=== PATIENT | male | born 1985 | race Caucasian/White ===

== ENCOUNTER 2016-06-08 18:30 | Emergency (ER) | payer BC ==
[2016-06-08] MEDS ORDERED: IBUPROFEN 800 MG TAB As Ordered ONE (22:06)
[2016-06-08] MEDS ORDERED: ONDANSETRON 4 MG ORAL DISINTEGRATING TAB (S0181) As Ordered ONE (22:06)
--- NOTE | 2016-06-08 22:13 | EDDOCDS ---
Nurse's Notes [facility] Name: Anton Lorenzo Age: 30 yrs Sex: Male : 1985 Arrival Date: 06/08/2016 Time: 18:30 Bed TR7 Private MD: NO PRIMARY PHYSICIAN, . Diagnosis: Generalized abdominal pain;Vomiting;Malaise and fatigue Presentation: 06/08 19:03 Presenting complaint: Patient states: he has had a stomach ache since last night cz vomiting last episode 0400. Risk factors: the patient reports not having a history of previous torsion. Adult Sepsis Screening: The patient does not have new or worsening altered mentation. Patient's respiratory rate is less than 22. Systolic blood pressure is greater than 100. Patient has a qSOFA score of 0- Negative Sepsis Screen. Suicide/Homicide risk assessment- the patient denies having any suicidal and/or homicidal ideations and does not present with any other emotional, behavioral or mental health complaints. Status: Patient is not a community services coordinator or dependent. Transition of care: patient was not received from another setting of care. 19:03 Acuity: TRISTEN Level 4 cz 19:03 Method Of Arrival: Walkin/Carried/Asstd cz Triage Assessment: 19:05 General: Appears in no apparent distress. Pain: Location: abdomen Pain currently is 5 cz out of 10 on a pain scale. Pt Declines HIV testing. Historical: - Allergies: No known drug Allergies; - Home Meds: 1. none - PMHx: none; - PSHx: Tonsillectomy; - Social history: Smoking status: Patient states was never smoker of tobacco. No barriers to communication noted, The patient speaks fluent Latvian, Speaks appropriately for age. - Family history: Not pertinent. - : The pt / caregiver states he / she is not on anticoagulants. Home medication list is obtained from the patient. - Exposure Risk Screening:: None identified. Screenin:42 Screening information is obtained from the patient. Fall risk: No risks identified. lf1 Assistance ADL's: requires no assistance with activities of daily living. Abuse/DV Screen: The patient / caregiver reports he/she is: not in a situation that causes fear, pain or injury. Nutritional screening: No deficits noted. Advance Directives: Currently, there is no health care proxy. There is no active DNR order. There is no living will. home support is adequate. Assessment: 21:42 Adult Sepsis Screening: The patient does not have new or worsening altered mentation. lf1 Patient's respiratory rate is less than 22. Systolic blood pressure is greater than 100. Patient has a qSOFA score of 0- Negative Sepsis Screen. General: Appears uncomfortable, Behavior is cooperative. Pain: Location: abdomen Pain currently is 4 out of 10 on a pain scale. Quality of pain is described as crampy. Neurological: Level of Consciousness is awake, alert, Oriented to person, place, time. EENT: No deficits noted. Cardiovascular: Chest pain is denied. Respiratory: Respiratory effort is even, unlabored. GI: Reports nausea, vomiting, Denies diarrhea. : No deficits noted. Derm: No deficits noted. Vital Signs: 18:32 BP 153 / 89; Pulse 117; Resp 18 S; Temp 98.2(O); Pulse Ox 100% on R/A; Weight 68.04 kg gr2 (R); Height 5 ft. 5 in. (165.10 cm) (R); Pain 8/10; 21:42 BP 146 / 89; Pulse 102; Resp 16; Temp 98.6(O); Pulse Ox 100% on R/A; Pain 4/10; lf1 18:32 Body Mass Index 24.96 (68.04 kg, 165.10 cm) gr2 Vitals: 18:32 Log In Time: June 08, 2016 at 18:32. gr2 ED Course: 18:31 Patient visited by Rowena Soria. gr2 18:31 Patient moved to Waiting gr2 18:32 NO PRIMARY PHYSICIAN, . is Private Physician. gr2 18:33 Patient visited by Rowena Soria. gr2 18:33 Patient moved to Pre RCE gr2 19:04 Triage Initiated cz 21:11 Patient moved to Triage 2 ar3 21:40 Tony Watts PA is PHCP. mo1 21:40 Hugo Green MD is Attending Physician. mo1 21:42 The patient / caregiver is instructed regarding the plan of care and ED course. lf1 21:45 Patient visited by Jessica Molina RN. lf1 21:49 Patient visited by Tony Watts PA. mo1 22:10 Patient moved to TR7 ar3 22:12 No IV's were initiated during this patient's visit. No procedures done that require ead assistance. Administered Medications: 22:04 Not Given (Patient Refused): ketorolac 60 mg IM once mo1 22:11 Drug: Ibuprofen 800 mg [ibuprofen 800 mg tablet (1 tabs)] Route: PO; ead 22:12 Drug: Ondansetron ODT 4 mg [ondansetron 4 mg disintegrating tablet (1 tabs)] Route: PO; ead Order Results: There are currently no results for this order. Outcome: 22:01 Discharge ordered by Provider. mo1 22:12 Discharge Assessment: Patient awake and alert. obeys commands, Oriented to person, ead place and time. patient administered narcotics - no. The following High Risk Discharge criteria are identified: None. Discharged to home ambulatory. Condition: unchanged. Discharge instructions given to patient, Instructed on discharge instructions, follow up and referral plans. medication usage, Demonstrated understanding of instructions, medications, Pt was receptive of discharge instructions/ teaching. Prescriptions given X 1. No special radiology studies were completed. Property sent home with patient. 22:13 Patient left the ED. ead Signatures: Amauri Rodriguez, RN RN cz Jessica MolinaRN RN lf1 Gabrielle Jhaveri, DESIGN ENGINEERING SPECIALIST DESIGN ENGINEERING SPECIALIST ar3 Rowena Soria gr2 Tony Watts PA PA mo1 Viviana Wayne,RN RN fabianod MTDD
--- NOTE | 2016-06-08 22:13 | EDDOCDS ---
Physician Documentation [facility] Name: Anton Lorenzo Age: 30 yrs Sex: Male : 1985 Arrival Date: 06/08/2016 Time: 18:30 Bed TR7 Private MD: NO PRIMARY PHYSICIAN, . Disposition: 06/08/16 22:01 Discharged to Home/Self Care. Impression: Generalized abdominal pain, Vomiting, Malaise and fatigue. - Condition is Stable. - Discharge Instructions: Abdominal Pain, Adult, Nausea and Vomiting. - Prescriptions for ZOFRAN ODT 4 mg Oral - dissolve 1 tablet by ORAL route 4 times per day As needed do not chew, do not swallow whole; 20 tablet. - Medication Reconciliation, Work Release Form - 3 day, Local Pharmacy Hours form. - Follow up: Private Physician; When: Call to arrange an appointment; Reason: Recheck today's complaints, Continuance of care. - Problem is new. - Symptoms are unchanged. Historical: - Allergies: No known drug Allergies; - Home Meds: 1. none - PMHx: none; - PSHx: Tonsillectomy; - Social history: Smoking status: Patient states was never smoker of tobacco. No barriers to communication noted, The patient speaks fluent [place] Rican, Speaks appropriately for age. - Family history: Not pertinent. - : The pt / caregiver states he / she is not on anticoagulants. Home medication list is obtained from the patient. - Exposure Risk Screening:: None identified. Vital Signs: 06/08 18:32 BP 153 / 89; Pulse 117; Resp 18 S; Temp 98.2(O); Pulse Ox 100% on R/A; Weight 68.04 kg gr2 / 150 lbs (R); Height 5 ft. 5 in. (165.10 cm) (R); Pain 8/10; 21:42 BP 146 / 89; Pulse 102; Resp 16; Temp 98.6(O); Pulse Ox 100% on R/A; Pain 4/10; lf1 18:32 Body Mass Index 24.96 (68.04 kg, 165.10 cm) gr2 MDM: 21:56 Ondansetron ODT Oral Disintegrating Tablet 4 mg PO once ordered. mo1 21:56 ketorolac 60 mg IM once ordered. mo1 22:04 Ibuprofen 800 mg PO once ordered. mo1 Administered Medications: 22:04 Not Given (Patient Refused): ketorolac 60 mg IM once mo1 22:11 Drug: Ibuprofen 800 mg [ibuprofen 800 mg tablet (1 tabs)] Route: PO; ead 22:12 Drug: Ondansetron ODT 4 mg [ondansetron 4 mg disintegrating tablet (1 tabs)] Route: PO; ead Signatures: Amauri Rodriguez RN RN cz Jessica Molina RN RN 1 Tony Watts PA PA mo1 Viviana Wayne RN RN ead MTDD
--- NOTE | 2016-06-10 23:13 | EDDOCDS ---
Physician Documentation [facility] Name: Anton Lorenzo Age: 30 yrs Sex: Male : 1985 Arrival Date: 06/08/2016 Time: 18:30 Bed TR7 Private MD: NO PRIMARY PHYSICIAN, . Disposition: 06/08/16 22:01 Discharged to Home/Self Care. Impression: Generalized abdominal pain, Vomiting, Malaise and fatigue. - Condition is Stable. - Discharge Instructions: Abdominal Pain, Adult, Nausea and Vomiting. - Prescriptions for ZOFRAN ODT 4 mg Oral - dissolve 1 tablet by ORAL route 4 times per day As needed do not chew, do not swallow whole; 20 tablet. - Medication Reconciliation, Work Release Form - 3 day, Local Pharmacy Hours form. - Follow up: Private Physician; When: Call to arrange an appointment; Reason: Recheck today's complaints, Continuance of care. - Problem is new. - Symptoms are unchanged. Historical: - Allergies: No known drug Allergies; - Home Meds: 1. none - PMHx: none; - PSHx: Tonsillectomy; - Social history: Smoking status: Patient states was never smoker of tobacco. No barriers to communication noted, The patient speaks fluent Guinean, Speaks appropriately for age. - Family history: Not pertinent. - : The pt / caregiver states he / she is not on anticoagulants. Home medication list is obtained from the patient. - Exposure Risk Screening:: None identified. Vital Signs: 06/08 18:32 BP 153 / 89; Pulse 117; Resp 18 S; Temp 98.2(O); Pulse Ox 100% on R/A; Weight 68.04 kg gr2 / 150 lbs (R); Height 5 ft. 5 in. (165.10 cm) (R); Pain 8/10; 21:42 BP 146 / 89; Pulse 102; Resp 16; Temp 98.6(O); Pulse Ox 100% on R/A; Pain 4/10; lf1 18:32 Body Mass Index 24.96 (68.04 kg, 165.10 cm) gr2 MDM: 21:56 Ondansetron ODT Oral Disintegrating Tablet 4 mg PO once ordered. mo1 21:56 ketorolac 60 mg IM once ordered. mo1 22:04 Ibuprofen 800 mg PO once ordered. mo1 23:34 [facility] Payment Agreement was scanned into [employer] and attached to record. [facility] :34 Financial registration complete. b 06/09 12:45 T-Sheet-- Draft Copy was scanned into [employer] and attached to record. gb Administered Medications: 06/08 22:04 Not Given (Patient Refused): ketorolac 60 mg IM once mo1 22:11 Drug: Ibuprofen 800 mg [ibuprofen 800 mg tablet (1 tabs)] Route: PO; ead 22:12 Drug: Ondansetron ODT 4 mg [ondansetron 4 mg disintegrating tablet (1 tabs)] Route: PO; ead Signatures: Amauri Rodriguez, RN RN Yolanda Schmitz, Reg Reg Jessica BurnsRN RN lf1 Tony Watts PA PA mo1 Viviana WayneRN RN Leonela Sebastian The chart was reviewed and I authenticate all verbal orders and agree with the evaluation and treatment provided.Attachments: 23:34 [facility] Payment Agreement [facility] 06/09 12:45 T-Sheet-- Draft Copy gb Chart Complete MTDD
--- NOTE | 2016-06-10 23:13 | EDDOCDS ---
Physician Documentation [facility] Name: Anton Lorenzo Age: 30 yrs Sex: Male : 1985 Arrival Date: 06/08/2016 Time: 18:30 Bed TR7 Private MD: NO PRIMARY PHYSICIAN, . Disposition: 06/08/16 22:01 Discharged to Home/Self Care. Impression: Generalized abdominal pain, Vomiting, Malaise and fatigue. - Condition is Stable. - Discharge Instructions: Abdominal Pain, Adult, Nausea and Vomiting. - Prescriptions for ZOFRAN ODT 4 mg Oral - dissolve 1 tablet by ORAL route 4 times per day As needed do not chew, do not swallow whole; 20 tablet. - Medication Reconciliation, Work Release Form - 3 day, Local Pharmacy Hours form. - Follow up: Private Physician; When: Call to arrange an appointment; Reason: Recheck today's complaints, Continuance of care. - Problem is new. - Symptoms are unchanged. Historical: - Allergies: No known drug Allergies; - Home Meds: 1. none - PMHx: none; - PSHx: Tonsillectomy; - Social history: Smoking status: Patient states was never smoker of tobacco. No barriers to communication noted, The patient speaks fluent Libyan, Speaks appropriately for age. - Family history: Not pertinent. - : The pt / caregiver states he / she is not on anticoagulants. Home medication list is obtained from the patient. - Exposure Risk Screening:: None identified. Vital Signs: 06/08 18:32 BP 153 / 89; Pulse 117; Resp 18 S; Temp 98.2(O); Pulse Ox 100% on R/A; Weight 68.04 kg gr2 / 150 lbs (R); Height 5 ft. 5 in. (165.10 cm) (R); Pain 8/10; 21:42 BP 146 / 89; Pulse 102; Resp 16; Temp 98.6(O); Pulse Ox 100% on R/A; Pain 4/10; lf1 18:32 Body Mass Index 24.96 (68.04 kg, 165.10 cm) gr2 MDM: 21:56 Ondansetron ODT Oral Disintegrating Tablet 4 mg PO once ordered. mo1 21:56 ketorolac 60 mg IM once ordered. mo1 22:04 Ibuprofen 800 mg PO once ordered. mo1 23:34 [facility] Payment Agreement was scanned into [employer] and attached to record. [facility] :34 Financial registration complete. b 06/09 12:45 T-Sheet-- Draft Copy was scanned into [employer] and attached to record. gb Administered Medications: 06/08 22:04 Not Given (Patient Refused): ketorolac 60 mg IM once mo1 22:11 Drug: Ibuprofen 800 mg [ibuprofen 800 mg tablet (1 tabs)] Route: PO; ead 22:12 Drug: Ondansetron ODT 4 mg [ondansetron 4 mg disintegrating tablet (1 tabs)] Route: PO; ead Signatures: Amauri Rodriguez, RN RN Yolanda Schmitz, Reg Reg Jessica BurnsRN RN lf1 Tony Watts PA PA mo1 Viviana WayneRN RN Leonela Sebatsian The chart was reviewed and I authenticate all verbal orders and agree with the evaluation and treatment provided.Attachments: 23:34 [facility] Payment Agreement [facility] 06/09 12:45 T-Sheet-- Draft Copy gb Chart Complete MTDD
--- NOTE | 2016-06-10 23:14 | EDDOCDS ---
Nurse's Notes [facility] Name: Anton Lorenzo Age: 30 yrs Sex: Male : 1985 Arrival Date: 06/08/2016 Time: 18:30 Bed TR7 Private MD: NO PRIMARY PHYSICIAN, . Diagnosis: Generalized abdominal pain;Vomiting;Malaise and fatigue Presentation: 06/08 19:03 Presenting complaint: Patient states: he has had a stomach ache since last night cz vomiting last episode 0400. Risk factors: the patient reports not having a history of previous torsion. Adult Sepsis Screening: The patient does not have new or worsening altered mentation. Patient's respiratory rate is less than 22. Systolic blood pressure is greater than 100. Patient has a qSOFA score of 0- Negative Sepsis Screen. Suicide/Homicide risk assessment- the patient denies having any suicidal and/or homicidal ideations and does not present with any other emotional, behavioral or mental health complaints. Status: Patient is not a sales and service advisor or dependent. Transition of care: patient was not received from another setting of care. 19:03 Acuity: TRISTEN Level 4 cz 19:03 Method Of Arrival: Walkin/Carried/Asstd cz Triage Assessment: 19:05 General: Appears in no apparent distress. Pain: Location: abdomen Pain currently is 5 cz out of 10 on a pain scale. Pt Declines HIV testing. Historical: - Allergies: No known drug Allergies; - Home Meds: 1. none - PMHx: none; - PSHx: Tonsillectomy; - Social history: Smoking status: Patient states was never smoker of tobacco. No barriers to communication noted, The patient speaks fluent Surinamese, Speaks appropriately for age. - Family history: Not pertinent. - : The pt / caregiver states he / she is not on anticoagulants. Home medication list is obtained from the patient. - Exposure Risk Screening:: None identified. Screenin:42 Screening information is obtained from the patient. Fall risk: No risks identified. lf1 Assistance ADL's: requires no assistance with activities of daily living. Abuse/DV Screen: The patient / caregiver reports he/she is: not in a situation that causes fear, pain or injury. Nutritional screening: No deficits noted. Advance Directives: Currently, there is no health care proxy. There is no active DNR order. There is no living will. home support is adequate. Assessment: 21:42 Adult Sepsis Screening: The patient does not have new or worsening altered mentation. lf1 Patient's respiratory rate is less than 22. Systolic blood pressure is greater than 100. Patient has a qSOFA score of 0- Negative Sepsis Screen. General: Appears uncomfortable, Behavior is cooperative. Pain: Location: abdomen Pain currently is 4 out of 10 on a pain scale. Quality of pain is described as crampy. Neurological: Level of Consciousness is awake, alert, Oriented to person, place, time. EENT: No deficits noted. Cardiovascular: Chest pain is denied. Respiratory: Respiratory effort is even, unlabored. GI: Reports nausea, vomiting, Denies diarrhea. : No deficits noted. Derm: No deficits noted. Vital Signs: 18:32 BP 153 / 89; Pulse 117; Resp 18 S; Temp 98.2(O); Pulse Ox 100% on R/A; Weight 68.04 kg gr2 (R); Height 5 ft. 5 in. (165.10 cm) (R); Pain 8/10; 21:42 BP 146 / 89; Pulse 102; Resp 16; Temp 98.6(O); Pulse Ox 100% on R/A; Pain 4/10; lf1 18:32 Body Mass Index 24.96 (68.04 kg, 165.10 cm) gr2 Vitals: 18:32 Log In Time: June 08, 2016 at 18:32. gr2 ED Course: 18:31 Patient visited by Rowena Soria. gr2 18:31 Patient moved to Waiting gr2 18:32 NO PRIMARY PHYSICIAN, . is Private Physician. gr2 18:33 Patient visited by Rowena Soria. gr2 18:33 Patient moved to Pre RCE gr2 19:04 Triage Initiated cz 21:11 Patient moved to Triage 2 ar3 21:40 Tony Watts PA is PHCP. mo1 21:40 Hugo Green MD is Attending Physician. mo1 21:42 The patient / caregiver is instructed regarding the plan of care and ED course. lf1 21:45 Patient visited by Jessica Molina RN. lf1 21:49 Patient visited by Tony Watts PA. mo1 22:10 Patient moved to TR7 ar3 22:12 No IV's were initiated during this patient's visit. No procedures done that require ead assistance. 23:34 [facility] Payment Agreement was scanned into [employer] and attached to record. cecil 06/09 12:45 T-Sheet-- Draft Copy was scanned into [employer] and attached to record. gb Administered Medications: 06/08 22:04 Not Given (Patient Refused): ketorolac 60 mg IM once mo1 22:11 Drug: Ibuprofen 800 mg [ibuprofen 800 mg tablet (1 tabs)] Route: PO; ead 22:12 Drug: Ondansetron ODT 4 mg [ondansetron 4 mg disintegrating tablet (1 tabs)] Route: PO; ead Order Results: There are currently no results for this order. Outcome: 22:01 Discharge ordered by Provider. mo1 22:12 Discharge Assessment: Patient awake and alert. obeys commands, Oriented to person, ead place and time. patient administered narcotics - no. The following High Risk Discharge criteria are identified: None. Discharged to home ambulatory. Condition: unchanged. Discharge instructions given to patient, Instructed on discharge instructions, follow up and referral plans. medication usage, Demonstrated understanding of instructions, medications, Pt was receptive of discharge instructions/ teaching. Prescriptions given X 1. No special radiology studies were completed. Property sent home with patient. 22:13 Patient left the ED. ead Signatures: Amauri Rodriguez, RN RN Yolanda Schmitz, Reg Reg Jessica Burns RN RN lf1 Gabrielle Jhaveri, PAID INTERN PAID INTERN ar3 Rowena Soria gr2 Tony Watts PA PA mo1 Viviana Wayne,Leonela Hunter RN Chart Complete MTDD
== END 2016-06-08 22:13 | disposition home or self-care (01) ==
LOC: M ED 18:30
DX: A08.4 Viral intestinal infection, unspecified (principal); R10.84 Generalized abdominal pain; R11.2 Nausea with vomiting, unspecified